=== PATIENT | male | born 1980 | race Two or more races ===

== ENCOUNTER 2017-08-25 12:06 | Emergency (ER) | payer OTHER ==
[~2017-08-25] VITALS: Ht 182.9 cm; Wt 120.2 kg
[2017-08-25] MEDS ORDERED: methylPREDNISolone SOD SUCC 125 MG/2ML VIAL ONE (12:21)
[2017-08-25] MEDS ORDERED: FAMOTIDINE/PF INJ 20 MG/2 ML VIAL IV ONE (12:21)
[2017-08-25] MEDS ORDERED: diphenhydrAMINE HCL 50 MG/ML VIAL ONE (12:21)
[2017-08-25] MEDS ORDERED: FAMOTIDINE/PF INJ 40 MG in IV D5W 250 ML IV ONE (12:30)
[2017-08-25] MEDS ORDERED: diphenhydrAMINE HCL 50 MG/ML VIAL IV ONE (12:30)
[2017-08-25] MEDS ORDERED: methylPREDNISolone SOD SUCC 125 MG/2ML VIAL IV ONE (12:30)
--- NOTE | 2017-08-25 12:30 | NUR ---
NEW IV STARTED ON LAC, 18G.
--- NOTE | 2017-08-25 12:39 | NUR ---
PATIENT MEDICATED PER MD ORDERS.
[2017-08-25 14:06] VITALS: BP 161/97
--- NOTE | 2017-08-25 14:08 | NUR ---
IV removed. Catheter intact and site benign. Pressure and 4x4 applied to site. No bleeding noted. Patient discharged to home in stable condition. Written and verbal after care instructions given. Patient verbalizes understanding of instruction.
== END 2017-08-25 14:08 | disposition home or self-care (01) ==
LOC: ER 12:09
DX: T78.3XXA Angioneurotic edema, initial encounter (principal)
CPT/HCPCS: 96365; 96375; 99284; A4606; J1200; J2930; J3490; J7050; Z7610